=== PATIENT | female | born 1995 | race Caucasian/White ===

== ENCOUNTER 2017-10-21 16:16 | Emergency (ER) | payer SELFPAY ==
[~2017-10-21] VITALS: Ht 149.9 cm; Wt 54.4 kg
[~2017-10-21 16:16] MED LIST: CETI10TA17; LEVO500T2 PO; MONT10TA24; PHEN-640 PO; SERT50TA9
--- OUTSIDE RECORDS SUMMARY | 2017-10-21 16:22 | XMS REPORT ---
Author Author GISEL ZHANG [facility] eClinicalWorks Address Unknown Phone Unavailable Care Team Providers Care Systems Auditor Name Role Phone GISEL ZHANG Unavailable Allergies, Adverse Reactions, Alerts Substance Reaction Event Type N.K.D.A. Info Not Available Non Drug Allergy Problems Problem Type Condition Code Onset Dates Condition Status Assessment Dysthymia F34.1 Active Assessment Mild intermittent asthma without complication J45.20 Active Problem Mild intermittent asthma without complication J45.20 Active Problem Mood disorder F39 Active Problem Dysthymia F34.1 Active Problem H/O sciatica Z86.69 Active Problem Contraception management Z30.9 Active Problem Generalized anxiety disorder F41.1 Active Problem Low back pain M54.5 Active Medications Medication Code System Code Instructions Start Date End Date Status Dosage Flovent HFA [facility] [address]-72 44 MCG/ACT Inhalation Twice a day Jun 07, 2016 2 puffs Flonase [facility] [address]-71 50 MCG/ACT Nasally Once a day 1 spray in each nostril Proventil HFA [facility] [address]-08 108 (90 Base) MCG/ACT Inhalation every 4 hrs March 18, 2015 2 puffs as needed Singulair [facility] [address]-36 10 MG Orally Once a day 1 tablet in the evening Fluticasone Propionate HFA [facility] [address]-01 44 MCG/ACT Inhalation Twice a day March 18, 2015 March 12, 2016 2 puffs PredniSONE [facility] [address]-93 10 mg Orally twice day Jun 07, 2016 Jun 12, 2016 1 tablet Zofran [facility] [address]-01 4 MG Orally 3 times a day prn nausea April 06, 2015 1 tablet Zoloft [facility] [address]-98 50mg Orally Once a day 1 tablet Prilosec [facility] [address]-40 20 mg Orally Once a day February 01, 2016 1 Procedures Procedure Coding System Code Date Office Visit, Est Pt., Level 3 CPT-4 82048 Jun 07, 2016 MEASURE BLOOD OXYGEN LEVEL CPT-4 78119 Jun 07, 2016 Vital Signs Date/Time: Jun 07, 2016 Cardiac Monitoring Heart Rate 90 bpm Weight 104.8 lbs Height 61 in BMI 19.80 Index Oximetry on room air:100 % Blood Pressure Diastolic 80 mmHg Blood Pressure Systolic 108 mmHg BMIPercentile 25.79 % Wt Percentile 8.34 % Results No Known Results Summary Purpose eClinicalWorks Submission
--- OUTSIDE RECORDS SUMMARY | 2017-10-21 16:22 | XMS REPORT ---
Author Author JEFF SCANLON [facility] eClinicalWorks Address Unknown Phone Unavailable Care Team Providers Care Insulation Helper Name Role Phone JEFF SCANLON CP Unavailable Allergies, Adverse Reactions, Alerts Substance Reaction Event Type N.K.D.A. Info Not Available Non Drug Allergy Problems Problem Type Condition Code Onset Dates Condition Status Problem H/O sciatica Z86.69 Active Problem Contraception management Z30.9 Active Problem Low back pain M54.5 Active Assessment Seasonal allergies J30.2 Active Assessment Pharyngitis J02.9 Active Assessment Body aches R52 Active Medications Medication Code System Code Instructions Start Date End Date Status Dosage Flonase [facility] [address]-71 50 MCG/ACT Nasally Once a day 1 spray in each nostril Proventil [facility] [address]-93 108 (90 Base) MCG/ACT Inhalation every 4 hrs March 18, 2015 2 puffs as needed Fluticasone Propionate HFA [facility] [address]-20 44 MCG/ACT Inhalation Twice a day March 18, 2015 March 12, 2016 2 puffs Singulair [facility] [address]-66 10 MG Orally Once a day 1 tablet in the evening Zyrtec Allergy [facility] [address]-02 10 MG Orally Once a day Dec 04, 2015 Dec 18, 2015 as directed Ibuprofen [facility] [address]-57 400 MG Orally Three times a day 1 tablet Zofran [facility] [address]-16 4 MG Orally 3 times a day prn nausea April 06, 2015 1 tablet Procedures Procedure Coding System Code Date CULTURE, BACTERIA, OTHER CPT-4 32184 Dec 04, 2015 INFLUENZA ASSAY W/OPTIC CPT-4 50594 Dec 04, 2015 STREP A ASSAY W/OPTIC CPT-4 96846 Dec 04, 2015 Office Visit, Est Pt., Level 3 CPT-4 63692 Dec 04, 2015 Vital Signs Date/Time: Dec 04, 2015 Temperature 97.8 F Weight 101.4 lbs Height 61 in BMI 19.16 Index Blood Pressure Diastolic 82 mmHg Blood Pressure Systolic 110 mmHg Cardiac Monitoring Heart Rate 80 bpm BMIPercentile 18.58 % Wt Percentile 5.27 % Results Name Result Date Reference Range Unit Abnormality Flag INFLUENZA A & B (IN HOUSE) ----Exp date 2017-06-0420151204 ----INFLUENZA A negative 20151204 ----INFLUENZA B negative 20151204 ----Control + 20151204 ----Lot # [id number] STREP A (IN HOUSE) ----Exp date 20151204 ----Control + 20151204 ----Lot # [id number] [id number] ----STREP A negative 20151204 Summary Purpose eClinicalWorks Submission
--- OUTSIDE RECORDS SUMMARY | 2017-10-21 16:22 | XMS REPORT ---
Author Author YUE ELLIOTT Organization eClinicalWorks Address Unknown Phone Unavailable Care Team Providers Care Medical Aide Name Role Phone YUE ELLIOTT CP Unavailable Allergies, Adverse Reactions, Alerts Substance Reaction Event Type N.K.D.A. Info Not Available Non Drug Allergy Problems Problem Type Condition Code Onset Dates Condition Status Problem H/O sciatica Z86.69 Active Problem Contraception management Z30.9 Active Problem Low back pain M54.5 Active Assessment Sore throat J02.9 Active Medications Medication Code System Code Instructions Start Date End Date Status Dosage Proventil HFA [facility] [address]-08 108 (90 Base) MCG/ACT Inhalation every 4 hrs March 18, 2015 2 puffs as needed Fluticasone Propionate HFA [facility] [address]-79 44 MCG/ACT Inhalation Twice a day March 18, 2015 March 12, 2016 2 puffs Amoxicillin [facility] [address]-97 500 MG Orally 3 times a day 1 tablet Singulair [facility] [address]-33 10 MG Orally Once a day 1 tablet in the evening Flonase [facility] [address]-70 50 MCG/ACT Nasally Once a day 1 spray in each nostril Zofran [facility] [address]-48 4 MG Orally 3 times a day prn nausea April 06, 2015 1 tablet Procedures Procedure Coding System Code Date Office Visit, Est Pt., Level 3 CPT-4 55366 Oct 13, 2015 Vital Signs Date/Time: Oct 13, 2015 Temperature 98.2 F Weight 94.1 lbs Height 61 in BMI 17.78 Index Blood Pressure Diastolic 70 mmHg Blood Pressure Systolic 100 mmHg Cardiac Monitoring Heart Rate 78 bpm BMIPercentile 5.5 % Wt Percentile 1.02 % Results No Known Results Summary Purpose eClinicalWorks Submission
--- OUTSIDE RECORDS SUMMARY | 2017-10-21 16:23 | XMS REPORT ---
Author Author ARCELIA STEELE [facility] Address [address] [place] [address] Care Team Providers Care Frankfurter Inspector Name Role Phone ARCELIA STEELE Unavailable PROBLEMS Type Condition ICD9-CM Code EUW35-CS Code Onset Dates Condition Status SNOMED Code Problem Contraception management Z30.9 Active 24446908 Problem Low back pain M54.5 Active 199081106 Problem H/O sciatica Z86.69 Active 533364780 Problem Family history of diabetes mellitus Z83.3 Active 688603294 Problem Irregular periods N92.6 Active 52110165 Problem Mood disorder F39 Active 56009834 Problem Generalized anxiety disorder F41.1 Active 10549425 Problem Mild intermittent asthma without complication J45.20 Active 246329717 Problem Dysthymia F34.1 Active 40665841 ALLERGIES No Known Allergies SOCIAL HISTORY Never Assessed PLAN OF CARE Activity Details Follow Up prn Reason: VITAL SIGNS Height 61 in 2017-03-21 Weight 114.8 lbs 2017-03-21 Temperature 98.0 degrees Fahrenheit 2017-03-21 Heart Rate 112 bpm 2017-03-21 Respiratory Rate 18 2017-03-21 BMI 21.69 kg/m2 2017-03-21 Blood pressure systolic 100 mmHg 2017-03-21 Blood pressure diastolic 70 mmHg 2017-03-21 MEDICATIONS Medication Instructions Dosage Frequency Start Date End Date Duration Status Flovent HFA 44 MCG/ACT Inhalation Twice a day 2 puffs 12h May, Active Flonase 50 MCG/ACT Nasally Once a day 1 spray in each nostril 24h Active Zoloft 50mg Orally Once a day 1 tablet 24h 30 day(s) Active Naprosyn 500 mg Orally 2 times a day, pc 1 February, Apr, 30 days Active Ibuprofen 400 MG Orally Three times a day 1 tablet 8h Active Proventil HFA 108 (90 Base) MCG/ACT Inhalation every 4 hrs 2 puffs as needed 4h February, Active Zofran 4 MG Orally 3 times a day prn nausea 1 tablet Mar, 05 days Active Prilosec 20 mg Orally Once a day 1 24h Jan, 30 day(s) Active Singulair 10 MG Orally Once a day 1 tablet in the evening 24h Active RESULTS No Results PROCEDURES No Known procedures IMMUNIZATIONS No Known Immunizations MEDICAL (GENERAL) HISTORY Type Description Date Medical History asthma Medical History allergic rhinitis Medical History migraine headaches Medical History spastic bladder Medical History 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
--- OUTSIDE RECORDS SUMMARY | 2017-10-21 16:23 | XMS REPORT ---
Author Author DANITA TERRAZAS eClinicalWorks Address Unknown Phone Unavailable Care Team Providers Care Make Up Man Name Role Phone DANITA TERRAZAS Unavailable Allergies, Adverse Reactions, Alerts Substance Reaction Event Type N.K.D.A. Info Not Available Non Drug Allergy Problems Problem Type Condition Code Onset Dates Condition Status Assessment Nausea R11.0 Active Assessment History of recurrent UTIs Z87.440 Active Problem H/O sciatica Z86.69 Active Problem Contraception management Z30.9 Active Problem Low back pain M54.5 Active Assessment History of migraine headaches Z86.69 Active Assessment Lightheaded R42 Active Assessment Dark urine R82.99 Active Assessment Bad odor of urine R82.90 Active Medications Medication Code System Code Instructions Start Date End Date Status Dosage Singulair [facility] [address]-59 10 MG Orally Once a day 1 tablet in the evening Flonase [facility] [address]-17 50 MCG/ACT Nasally Once a day 1 spray in each nostril Zofran [facility] [address]-89 4 MG Orally 3 times a day prn nausea April 06, 2015 1 tablet Proventil HFA [facility] [address]-12 108 (90 Base) MCG/ACT Inhalation every 4 hrs March 18, 2015 2 puffs as needed Fluticasone Propionate HFA [facility] [address]-60 44 MCG/ACT Inhalation Twice a day March 18, 2015 March 12, 2016 2 puffs Procedures Procedure Coding System Code Date URINE CULTURE/COLONY COUNT CPT-4 53556 Sep 28, 2015 Office Visit, Est Pt., Level 3 CPT-4 85223 Sep 28, 2015 URINALYSIS, AUTO, W/O SCOPE CPT-4 35498 Sep 28, 2015 Vital Signs Date/Time: Sep 28, 2015 Temperature 97.0 F Weight 95.4 lbs Height 61 in BMI 18.02 Index Blood Pressure Diastolic 66 mmHg Blood Pressure Systolic 98 mmHg Cardiac Monitoring Heart Rate 78 bpm BMIPercentile 7.22 % Wt Percentile 1.46 % Results No Known Results Summary Purpose eClinicalWorks Submission
--- OUTSIDE RECORDS SUMMARY | 2017-10-21 16:23 | XMS REPORT ---
Author Author GISEL ZHANG Organization eClinicalWorks Address Unknown Phone Unavailable Care Team Providers Care Rn Research Name Role Phone GISEL ZHANG CP Unavailable Allergies, Adverse Reactions, Alerts Substance Reaction Event Type N.K.D.A. Info Not Available Non Drug Allergy Problems Problem Type Condition Code Onset Dates Condition Status Problem Other general medical examination for administrative purposes V70.3 Active Problem Palpitations 785.1 Active Problem Contraception management Z30.9 Active Assessment Contraception management Z30.9 Active Problem Lumbago 724.2 Active Problem Sciatica 724.3 Active Medications No Known Medications Procedures Procedure Coding System Code Date DEPO PROVERA (150 MG/ML) CPT-4 J1050 Sep 01, 2015 THER/PROPH/DIAG INJ, SC/IM CPT-4 76532 Sep 01, 2015 URINE TEST CPT-4 18017 Sep 01, 2015 Office Visit, Est Pt., Level 4 CPT-4 34675 Sep 01, 2015 Vital Signs Date/Time: Sep 01, 2015 Temperature 97.9 F Weight 96.9 lbs Height 61 in BMI 18.31 Index Blood Pressure Diastolic 64 mmHg Blood Pressure Systolic 98 mmHg Cardiac Monitoring Heart Rate 88 bpm BMIPercentile 9.85 % Wt Percentile 2.18 % Results Name Result Date Reference Range Unit Abnormality Flag TEST, URINE (IN HOUSE) Summary Purpose eClinicalWorks Submission
--- OUTSIDE RECORDS SUMMARY | 2017-10-21 16:23 | XMS REPORT ---
Author LONNIE Fernandez [facility] eClinicalWorks Address Unknown Phone Unavailable Care Team Providers Care Golf Ball Trimmer Name Role Phone LONNIE LONDON Unavailable Allergies, Adverse Reactions, Alerts Substance Reaction Event Type N.K.D.A. Info Not Available Non Drug Allergy Problems Problem Type Condition Code Onset Dates Condition Status Problem H/O sciatica Z86.69 Active Problem Contraception management Z30.9 Active Problem Low back pain M54.5 Active Assessment Abdominal pain R10.9 Active Medications Medication Code System Code Instructions Start Date End Date Status Dosage Hydrocodone-Acetaminophen [facility] [address]-01 5-325 MG Orally every 6 hrs Sep 30, 2015 Oct 05, 2015 1 tablet as needed Proventil HFA [facility] [address]-25 108 (90 Base) MCG/ACT Inhalation every 4 hrs March 18, 2015 2 puffs as needed Singulair [facility] [address]-14 10 MG Orally Once a day 1 tablet in the evening Flonase [facility] [address]-67 50 MCG/ACT Nasally Once a day 1 spray in each nostril Zofran [facility] [address]-59 4 MG Orally 3 times a day prn nausea April 06, 2015 1 tablet Fluticasone Propionate HFA [facility] [address]-01 44 MCG/ACT Inhalation Twice a day March 18, 2015 March 12, 2016 2 puffs Procedures Procedure Coding System Code Date X-RAY EXAM OF ABDOMEN CPT-4 68507 Sep 30, 2015 Office Visit, Est Pt., Level 3 CPT-4 91042 Sep 30, 2015 URINALYSIS, AUTO, W/O SCOPE CPT-4 53207 Sep 30, 2015 Vital Signs Date/Time: Sep 30, 2015 Temperature 98.3 F Weight 96.2 lbs Height 61 in BMI 18.17 Index Blood Pressure Diastolic 70 mmHg Blood Pressure Systolic 106 mmHg Cardiac Monitoring Heart Rate 80 bpm BMIPercentile 8.44 % Wt Percentile 1.81 % Results Name Result Date Reference Range Unit Abnormality Flag UA W/CULTURE IF INDICATED (IN HOUSE) ----ISAIAH negative 20150930 ----NIT negative 20150930 ----SG 1.025 20150930 ----KET negative 20150930 ----NICKI negative 20150930 ----GLU negative 20150930 ----Odor none 20150930 ----pH 6.5 20150930 ----BLO 1+ 20150930 ----URO 0.2 20150930 ----Protein negative 20150930 ----Lot # [id number] ----Exp date 20150930 ----Clarity clear 20150930 ----Color yellow 20150930 Xray : BRETT (IN HOUSE) Summary Purpose eClinicalWorks Submission
--- OUTSIDE RECORDS SUMMARY | 2017-10-21 16:23 | XMS REPORT ---
Author Author GISEL ZHANG [facility] eClinicalWorks Address Unknown Phone Unavailable Care Team Providers Care Breaker Tender Name Role Phone GISEL ZHANG Unavailable Allergies, Adverse Reactions, Alerts Substance Reaction Event Type N.K.D.A. Info Not Available Non Drug Allergy Problems Problem Type Condition Code Onset Dates Condition Status Problem Generalized anxiety disorder F41.1 Active Problem Low back pain M54.5 Active Problem Mood disorder F39 Active Assessment Dysthymia F34.1 Active Problem H/O sciatica Z86.69 Active Problem Contraception management Z30.9 Active Medications Medication Code System Code Instructions Start Date End Date Status Dosage Flonase [facility] [address]-22 50 MCG/ACT Nasally Once a day 1 spray in each nostril Proventil HFA [facility] [address]-17 108 (90 Base) MCG/ACT Inhalation every 4 hrs March 18, 2015 2 puffs as needed Prilosec [facility] [address]-27 20 mg Orally Once a day February 01, 2016 1 Singulair [facility] [address]-88 10 MG Orally Once a day 1 tablet in the evening Zofran [facility] [address]-08 4 MG Orally 3 times a day prn nausea April 06, 2015 1 tablet Zoloft [facility] [address]-40 25 MG Orally Once a day 1 tablet Procedures Procedure Coding System Code Date Office Visit, Est Pt., Level 3 CPT-4 05084 May 04, 2016 Vital Signs Date/Time: May 04, 2016 Cardiac Monitoring Heart Rate 72 bpm Weight 102.9 lbs Height 61 in BMIPercentile 21.22 % Wt Percentile 6.3 % Blood Pressure Diastolic 66 mmHg Blood Pressure Systolic 100 mmHg Results No Known Results Summary Purpose eClinicalWorks Submission
--- OUTSIDE RECORDS SUMMARY | 2017-10-21 16:23 | XMS REPORT ---
Author Author GISEL ZHANG Organization eClinicalWorks Address Unknown Phone Unavailable Care Team Providers Care Corrugated Sheet Material Sheeter Name Role Phone GISEL ZHANG CP Unavailable Allergies No Known Allergies Problems Problem Type Condition Code Onset Dates Condition Status Problem H/O sciatica Z86.69 Active Problem Contraception management Z30.9 Active Problem Low back pain M54.5 Active Assessment Encounter for Depo-Provera contraception Z30.42 Active Medications No Known Medications Procedures Procedure Coding System Code Date DEPO PROVERA (150 MG/ML) CPT-4 J1050 Nov 19, 2015 THER/PROPH/DIAG INJ, SC/IM CPT-4 81978 Nov 19, 2015 URINE TEST CPT-4 07640 Nov 19, 2015 Results Name Result Date Reference Range Unit Abnormality Flag TEST, URINE (IN HOUSE) ----RESULTS negative 20151119 ----Lot # [id number] [id number] ----Control + 20151119 ----Exp date 20151119 Summary Purpose eClinicalWorks Submission
--- OUTSIDE RECORDS SUMMARY | 2017-10-21 16:23 | XMS REPORT ---
Author ARCELIA Lyons [facility] eClinicalWorks Address Unknown Phone Unavailable Care Team Providers Care Dog Boarder Name Role Phone ARCELIA STEELE Unavailable Allergies, Adverse Reactions, Alerts Substance Reaction Event Type N.K.D.A. Info Not Available Non Drug Allergy Problems Problem Type Condition Code Onset Dates Condition Status Problem Generalized anxiety disorder F41.1 Active Problem Low back pain M54.5 Active Problem Mood disorder F39 Active Assessment Dyspepsia R10.13 Active Problem H/O sciatica Z86.69 Active Problem Contraception management Z30.9 Active Medications Medication Code System Code Instructions Start Date End Date Status Dosage Depo-Provera [facility] [address]-11 150 MG/ML Intramuscular 1 ml Ibuprofen [facility] [address]-04 400 MG Orally Three times a day 1 tablet Prilosec [facility] [address]-79 20 mg Orally Once a day February 01, 2016 1 Singulair [facility] [address]-81 10 MG Orally Once a day 1 tablet in the evening Fluticasone Propionate HFA [facility] [address]-08 44 MCG/ACT Inhalation Twice a day March 18, 2015 March 12, 2016 2 puffs Proventil HFA [facility] [address]-94 108 (90 Base) MCG/ACT Inhalation every 4 hrs March 18, 2015 2 puffs as needed Flonase [facility] [address]-10 50 MCG/ACT Nasally Once a day 1 spray in each nostril Zofran [facility] [address]-80 4 MG Orally 3 times a day prn nausea April 06, 2015 1 tablet Procedures Procedure Coding System Code Date Office Visit, Est Pt., Level 2 CPT-4 28621 February 01, 2016 Vital Signs Date/Time: February 01, 2016 Temperature 98.4 F Weight 105 lbs Height 61 in BMI 19.84 Index Blood Pressure Diastolic 82 mmHg Blood Pressure Systolic 106 mmHg Cardiac Monitoring Heart Rate 80 bpm BMIPercentile 27.07 % Wt Percentile 9.12 % Results No Known Results Summary Purpose eClinicalWorks Submission
--- OUTSIDE RECORDS SUMMARY | 2017-10-21 16:23 | XMS REPORT ---
Author Author GISEL ZHANG [facility] eClinicalWorks Address Unknown Phone Unavailable Care Team Providers Care Mucker Cofferdam Name Role Phone GISEL ZHANG Unavailable Allergies, Adverse Reactions, Alerts Substance Reaction Event Type N.K.D.A. Info Not Available Non Drug Allergy Problems Problem Type Condition Code Onset Dates Condition Status Assessment Dysthymia F34.1 Active Problem H/O sciatica Z86.69 Active Problem Contraception management Z30.9 Active Assessment Family history of diabetes mellitus Z83.3 Active Assessment Irregular periods N92.6 Active Problem Family history of diabetes mellitus Z83.3 Active Problem Dysthymia F34.1 Active Problem Irregular periods N92.6 Active Problem Generalized anxiety disorder F41.1 Active Problem Low back pain M54.5 Active Problem Mild intermittent asthma without complication J45.20 Active Problem Mood disorder F39 Active Medications Medication Code System Code Instructions Start Date End Date Status Dosage Proventil HFA [facility] [address]-35 108 (90 Base) MCG/ACT Inhalation every 4 hrs March 18, 2015 2 puffs as needed Flonase [facility] [address]-61 50 MCG/ACT Nasally Once a day 1 spray in each nostril Prilosec [facility] [address]-75 20 mg Orally Once a day February 01, 2016 1 Zofran [facility] [address]-55 4 MG Orally 3 times a day prn nausea April 06, 2015 1 tablet Flovent HFA [facility] [address]-85 44 MCG/ACT Inhalation Twice a day Jun 07, 2016 2 puffs Zoloft [facility] [address]-49 50mg Orally Once a day 1 tablet Singulair [facility] [address]-38 10 MG Orally Once a day 1 tablet in the evening Procedures Procedure Coding System Code Date GLYCATED HEMOGLOBIN TEST CPT-4 87827 Aug 09, 2016 Office Visit, Est Pt., Level 3 CPT-4 00282 Aug 09, 2016 URINE TEST CPT-4 24954 Aug 09, 2016 Vital Signs Date/Time: Aug 09, 2016 Cardiac Monitoring Heart Rate 90 bpm Weight 112 lbs Height 61 in Wt Percentile 19.08 % BMI 21.16 Index Blood Pressure Diastolic 72 mmHg Blood Pressure Systolic 104 mmHg BMIPercentile 43.88 % Results No Known Results Summary Purpose eClinicalWorks Submission
--- OUTSIDE RECORDS SUMMARY | 2017-10-21 16:23 | XMS REPORT ---
Author Author YUE ELLIOTT Organization [employer] Address Unknown Phone Unavailable Care Team Providers Care Surgical Appliances Salesperson Name Role Phone YUE ELLIOTT CP Unavailable Allergies, Adverse Reactions, Alerts Substance Reaction Event Type N.K.D.A. Info Not Available Non Drug Allergy Problems Problem Type Condition Code Onset Dates Condition Status Assessment Musculoskeletal chest pain R07.89 Active Problem Generalized anxiety disorder F41.1 Active Problem Low back pain M54.5 Active Problem Mood disorder F39 Active Assessment Chest pain on breathing R07.1 Active Assessment Heart palpitations R00.2 Active Problem H/O sciatica Z86.69 Active Problem Contraception management Z30.9 Active Medications Medication Code System Code Instructions Start Date End Date Status Dosage Proventil HFA [facility] [place] [address]-86 108 (90 Base) MCG/ACT Inhalation every 4 hrs March 18, 2015 2 puffs as needed Prilosec [facility] [place] [address]-34 20 mg Orally Once a day February 01, 2016 1 Flonase [facility] [place] [address]-24 50 MCG/ACT Nasally Once a day 1 spray in each nostril Zofran [facility] [place] [address]-60 4 MG Orally 3 times a day prn nausea April 06, 2015 1 tablet Zoloft [facility] [place] [address]-89 25 MG Orally Once a day 1 tablet Singulair [facility] [place] [address]-36 10 MG Orally Once a day 1 tablet in the evening Procedures Procedure Coding System Code Date CHEST X-RAY CPT-4 52891 May 21, 2016 ELECTROCARDIOGRAM, TRACING CPT-4 49397 May 21, 2016 MEASURE BLOOD OXYGEN LEVEL CPT-4 84500 May 21, 2016 Office Visit, Est Pt., Level 3 CPT-4 64916 May 21, 2016 Vital Signs Date/Time: May 21, 2016 Cardiac Monitoring Heart Rate 108 bpm Weight 103 lbs Height 61 in BMIPercentile 21.47 % Wt Percentile 6.39 % Blood Pressure Diastolic 88 mmHg Blood Pressure Systolic 124 mmHg Results No Known Results Summary Purpose [employer] Submission
--- OUTSIDE RECORDS SUMMARY | 2017-10-21 16:23 | XMS REPORT ---
Author MARIELA Borrero Organization [employer] Address Unknown Phone Unavailable Care Team Providers Care Financial Analyst Name Role Phone MARIELA KAPOOR Unavailable Allergies No Known Allergies Problems Problem Type Condition Code Onset Dates Condition Status Problem H/O sciatica Z86.69 Active Problem Contraception management Z30.9 Active Problem Low back pain M54.5 Active Medications No Known Medications Results No Known Results Summary Purpose [employer] Submission
--- OUTSIDE RECORDS SUMMARY | 2017-10-21 16:23 | XMS REPORT ---
Author Author MARY FAUSTIN Organization [facility] Address [address] [place] [address] Care Team Providers Care Cloth Measurer Name Role Phone MARY FAUSTIN Unavailable PROBLEMS Type Condition ICD9-CM Code [id number] Code Onset Dates Condition Status SNOMED Code Problem Contraception management Z30.9 Active 24768433 Problem Low back pain M54.5 Active 185747272 Problem H/O sciatica Z86.69 Active 563839409 Problem Family history of diabetes mellitus Z83.3 Active 523068637 Problem Irregular periods N92.6 Active 71832903 Problem Mood disorder F39 Active 66400490 Problem Generalized anxiety disorder F41.1 Active 30685510 Problem Mild intermittent asthma without complication J45.20 Active 499290495 Problem Dysthymia F34.1 Active 41105394 ALLERGIES No Known Allergies SOCIAL HISTORY Never Assessed PLAN OF CARE Activity Details Follow Up prn Reason: VITAL SIGNS Height 61 in 2016-12-30 Weight 111.4 lbs 2016-12-30 Temperature 99.0 degrees Fahrenheit 2016-12-30 Heart Rate 100 bpm 2016-12-30 Respiratory Rate 22 2016-12-30 BMI 21.05 kg/m2 2016-12-30 Blood pressure systolic 110 mmHg 2016-12-30 Blood pressure diastolic 78 mmHg 2016-12-30 MEDICATIONS Medication Instructions Dosage Frequency Start Date End Date Duration Status Amoxicillin 875 MG Orally every 12 hrs 1 tablet 12h Dec, Dec, 10 day(s) Active Flonase Allergy Relief 50 MCG/ACT Nasally twice a day 1 spray in each nostril 12h Sep, 30 day(s) Active Ibuprofen 400 MG Orally Three times a day 1 tablet 8h Active Zoloft 50mg Orally Once a day 1 tablet 24h 30 day(s) Active Zofran 4 MG Orally 3 times a day prn nausea 1 tablet Mar, 05 days Active Singulair 10 MG Orally Once a day 1 tablet in the evening 24h Active Proventil HFA 108 (90 Base) MCG/ACT Inhalation every 4 hrs 2 puffs as needed 4h 20 Feb, 2015 Active Prilosec 20 mg Orally Once a day 1 24h Jan, 30 day(s) Active Flovent HFA 44 MCG/ACT Inhalation Twice a day 2 puffs 12h May, Active Flonase 50 MCG/ACT Nasally Once a day 1 spray in each nostril 24h Active RESULTS No Results PROCEDURES No Known procedures IMMUNIZATIONS No Known Immunizations MEDICAL (GENERAL) HISTORY Type Description Date Medical History asthma Medical History allergic rhinitis Medical History migraine headaches Medical History spastic bladder Medical History 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
--- OUTSIDE RECORDS SUMMARY | 2017-10-21 16:23 | XMS REPORT ---
Author Author GISEL ZHANG [facility] Address [address] [place] [address] Care Team Providers Care Nursing Service Administrator Name Role Phone GISEL ZHANG Unavailable PROBLEMS Type Condition ICD9-CM Code [id number] Code Onset Dates Condition Status SNOMED Code Problem Contraception management Z30.9 Active 86801569 Problem Low back pain M54.5 Active 841015072 Problem H/O sciatica Z86.69 Active 138056638 Problem Family history of diabetes mellitus Z83.3 Active 873222466 Problem Irregular periods N92.6 Active 68624066 Problem Mood disorder F39 Active 44011249 Problem Generalized anxiety disorder F41.1 Active 81621528 Problem Mild intermittent asthma without complication J45.20 Active 769112892 Problem Dysthymia F34.1 Active 82075051 ALLERGIES No Information SOCIAL HISTORY Never Assessed PLAN OF CARE VITAL SIGNS MEDICATIONS Medication Instructions Dosage Frequency Start Date End Date Duration Status Proventil HFA 108 (90 Base) MCG/ACT Inhalation every 4 hrs 2 puffs as needed 4h 20 Feb, 2015 Active RESULTS No Results PROCEDURES No Known procedures IMMUNIZATIONS No Known Immunizations MEDICAL (GENERAL) HISTORY Type Description Date Medical History asthma Medical History allergic rhinitis Medical History migraine headaches Medical History spastic bladder Medical History 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
--- OUTSIDE RECORDS SUMMARY | 2017-10-21 16:24 | XMS REPORT | Continuity of Care Document ---
Author Author [facility] Address Unknown Phone Unavailable Allergies Active Description Code Type Severity Reaction Onset Reported/Identified Relationship to Patient Clinical Status Yes No Known Drug Allergies [id number] Drug Allergy Mild N/A 05/01/2009 Medications There is no data. 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, Tetanus-diphtheria [td] 06/21/2008 ELOY HITCHCOCK APRN V20.2 Preventive Medicine New Patient Evaluation Childhood 5-11 06/21/2008 MICKEY GISEL ALVAREZ V05.3 Hepatitis Viral/all 06/21/2008 MICKEY KIM GISEL L V05.4 Varicella, Chickenpox 06/21/2008 MICKEY GISEL ALVAREZ L V05.8 Gardasil, Shingles, Other Specified Disease 06/21/2008 MICKEY GISEL ALVAREZ L V06.5 Dt, Tetanus-diphtheria [td] 06/21/2008 MICKEY GISEL ALVAREZ L V20.2 Preventive Medicine New Patient Evaluation Childhood 5-11 06/21/2008 ELOY HITCHCOCK APRN V05.3 Hepatitis Viral/all 06/21/2008 ELOY HITCHCOCK APRN V05.4 Varicella, Chickenpox 06/21/2008 ELOY HITCHCOCK APRN V05.8 Gardasil, Shingles, Other Specified Disease 06/21/2008 ELOY HITCHCOCK APRN V06.5 Dt, Tetanus-diphtheria [td] 06/21/2008 ELOY HITCHCOCK APRN V20.2 Preventive Medicine New Patient Evaluation Childhood 5-11 06/21/[address] CUTTER, SUMIT R V05.3 Hepatitis Viral/all 06/21/[address] CUTTER, SUMIT R V05.4 Varicella, Chickenpox 06/21/[address] CUTTER, SUMIT R V05.8 Gardasil, Shingles, Other Specified Disease 06/21/[address] CUTTER, SUIMT R V06.5 Dt, Tetanus-diphtheria [td] 06/21/[address] CUTTER, SUMIT R V20.2 Preventive Medicine New Patient Evaluation Childhood 5-11 06/21/[address] [facility] [address] CUTTER, GISEL L V05.3 Hepatitis Viral/all 06/21/[address] [facility] [address] CUTTER, GISEL L V05.4 Varicella, Chickenpox 06/21/[address] [facility] [address] CUTTER, GISEL L V05.8 Gardasil, Shingles, Other Specified Disease 06/21/[address] [facility] [address] CUTTER, GISEL L V06.5 Dt, Tetanus-diphtheria [td] 06/21/[address] [facility] [address] CUTTER, GISEL L V20.2 Preventive Medicine New Patient Evaluation Childhood 5-11 06/21/[address] CUTTER, GISEL L V05.3 Hepatitis Viral/all 06/21/[address] [facility] [address] CUTTER, GISEL L V05.4 Varicella, Chickenpox 06/21/[address] [facility] [address] CUTTER, GISEL L V05.8 Gardasil, Shingles, Other Specified Disease 06/21/[address] [facility] [address] CUTTER, GISEL L V06.5 Dt, Tetanus-diphtheria [td] 06/21/[address] [facility] [address] CUTTER, GISEL L V20.2 Preventive Medicine New Patient Evaluation Childhood 5-11 06/21/[address] CUTTER, BOB R V05.3 Hepatitis Viral/all 06/21/2008 ALEXEY SANTIAGON, BOB R V05.4 Varicella, Chickenpox 06/21/2008 ALEXEY SANTIAGON BOB R V05.8 Gardasil, Shingles, Other Specified Disease 06/21/2008 ALEXEY SANTIAGON BOB R V06.5 Dt, Tetanus-diphtheria [td] 06/21/[address] CUTTER, BOB R V20.2 Preventive Medicine New Patient Evaluation Childhood 5-11 06/21/[address] CUTTER, BOB R V05.3 Hepatitis Viral/all 06/21/[address] CUTTER BOB R V05.4 Varicella, Chickenpox 06/21/[address] CUTTER, BOB R V05.8 Gardasil, Shingles, Other Specified Disease 06/21/2008 ALEXEY SANTIAGON BOB R V06.5 Dt, Tetanus-diphtheria [td] 06/21/2008 ALEXEY SANTIAGONOSCARBOB R V20.2 Preventive Medicine New Patient Evaluation Childhood 5-11 06/21/[address] CUTTER, GISEL L V05.3 Hepatitis Viral/all 06/21/[address] CUTTER, GISEL L V05.4 Varicella, Chickenpox 06/21/[address] CUTTER, GISEL L V05.8 Gardasil, Shingles, Other Specified Disease 06/21/[address] CUTTER, GISEL L V06.5 Dt, Tetanus-diphtheria [td] 06/21/[address] CUTTER, GISEL L V20.2 Preventive Medicine New Patient Evaluation Childhood 5-11 07/24/2008 ELOY HITCHCOCK APRN 729.5 Pain In Limb 07/24/[address] CUTTER, GISEL L 729.5 Pain In Limb 07/24/2008 ELOY HITCHCOCK APRN 729.5 Pain In Limb 07/24/2008 CHRISSY ALVAREZ SUMIT R 729.5 Pain In Limb 07/24/[address] CUTTER, GISEL L 729.5 Pain In Limb 07/24/[address] CUTTER, GISEL L 729.5 Pain In Limb 07/24/2008 ALEXEY ALVAREZ BOB R 729.5 Pain In Limb 07/24/2008 OSCAR BLACKBURN APRNRICIA R 729.5 Pain In Limb 07/24/[address] CUTTER, GISEL L 729.5 Pain In Limb 10/01/2008 ELOY HITCHCOCK APRN 599.0 Urinary Tract Infection 10/01/2008 GISEL ZHANG APRN L 599.0 Urinary Tract Infection 10/01/2008 ELOY HITCHCOCK APRN 599.0 Urinary Tract Infection 10/01/[address] CUTTER, SUMIT R 599.0 Urinary Tract Infection 10/01/[address] CUTTER, GISEL L 599.0 Urinary Tract Infection 10/01/[address] CUTTER, GISEL L 599.0 Urinary Tract Infection 10/01/[address] CUTTER, BOB R 599.0 Urinary Tract Infection 10/01/2008 ALEXEY SANTIAGON, BOB R 599.0 Urinary Tract Infection 10/01/[address] CUTTER, GISEL L 599.0 Urinary Tract Infection 12/02/2008 ELOY HITCHCOCK APRN 787.02 Nausea 12/02/2008 ELOY HITCHCOCK APRN 789.00 Abdominal Pain 12/02/[address] CUTTER, GISEL L 787.02 Nausea 12/02/[address] CUTTER, GISEL L 789.00 Abdominal Pain 12/02/2008 ELOY HITCHCOCK APRN 787.02 Nausea 12/02/2008 ELOY HITCHCOCK APRN 789.00 Abdominal Pain 12/02/2008 CHRISSY ALVAREZ, SUMIT R 787.02 Nausea 12/02/[address] CUTTER, SUMIT R 789.00 Abdominal Pain 12/02/[address] CUTTER, GISEL L 787.02 Nausea 12/02/[address] CUTTER, GISEL L 789.00 Abdominal Pain 12/02/[address] CUTTER, GISEL L 787.02 Nausea 12/02/[address] CUTTER, GISEL L 789.00 Abdominal Pain 12/02/2008 OSCAR BLACKBURN APRNRICIA R 787.02 Nausea 12/02/2008 ALEXEY ALVAREZ BOB R 789.00 Abdominal Pain 12/02/2008 ALEXEY ALVAREZ BOB R 787.02 Nausea 12/02/2008 ALEXEY ALVAREZ BOB R 789.00 Abdominal Pain 12/02/[address] CUTTER, GISEL L 787.02 Nausea 12/02/[address] CUTTER, GISEL L 789.00 Abdominal Pain 01/20/2009 ELOY HITCHCOCK APRN 034.0 Pharyngitis Streptococcus, Group A: Beta Hemolytic 01/20/[address] CUTTER, GISEL L 034.0 Pharyngitis Streptococcus, Group A: Beta Hemolytic 01/20/2009 ELOY HITCHCOCK APRN T 034.0 Pharyngitis Streptococcus, Group A: Beta Hemolytic 01/20/[address] CUTTER, SUMIT R 034.0 Pharyngitis Streptococcus, Group A: Beta Hemolytic 01/20/[address] CUTTER, GISEL L 034.0 Pharyngitis Streptococcus, Group A: Beta Hemolytic 01/20/[address] CUTTER, GISEL L 034.0 Pharyngitis Streptococcus, Group A: Beta Hemolytic 01/20/[address] CUTTER, BOB R 034.0 Pharyngitis Streptococcus, Group A: Beta Hemolytic 01/20/[address] CUTTER, BOB R 034.0 Pharyngitis Streptococcus, Group A: Beta Hemolytic 01/20/[address] CUTTER, GISEL L 034.0 Pharyngitis Streptococcus, Group A: Beta Hemolytic 06/05/2009 ELOY HITCHCOCK APRN 477.9 ALLERGIC RHINITIS 06/05/2009 ELOY HITCHCOCK APRN V03.89 Meningococcal, Other Specified Single Bacterial Disease 06/05/[address] [facility] [address] CUTTER, GISEL L 477.9 ALLERGIC RHINITIS 06/05/[address] [facility] [address] CUTTER, GISEL L V03.89 Meningococcal, Other Specified Single Bacterial Disease 06/05/2009 ELOY HITCHCOCK APRN 477.9 ALLERGIC RHINITIS 06/05/2009 ELOY HITCHCOCK APRN V03.89 Meningococcal, Other Specified Single Bacterial Disease 06/05/[address] CUTTER, SUMIT R 477.9 ALLERGIC RHINITIS 06/05/[address] CUTTER, SUMIT R V03.89 Meningococcal, Other Specified Single Bacterial Disease 06/05/[address] CUTTER, GISEL L 477.9 ALLERGIC RHINITIS 06/05/[address] CUTTER, GISEL L V03.89 Meningococcal, Other Specified Single Bacterial Disease 06/05/[address] CUTTER, GISEL L 477.9 ALLERGIC RHINITIS 06/05/[address] [facility] [address] CUTTER, GISEL L V03.89 Meningococcal, Other Specified Single Bacterial Disease 06/05/[address] CUTTER, BOB R 477.9 ALLERGIC RHINITIS 06/05/[address] CUTTER, BOB R V03.89 Meningococcal, Other Specified Single Bacterial Disease 06/05/[address] CUTTER, BOB R 477.9 ALLERGIC RHINITIS 06/05/[address] CUTTER, BOB R V03.89 Meningococcal, Other Specified Single Bacterial Disease 06/05/[address] CUTTER, GISEL L 477.9 ALLERGIC RHINITIS 06/05/[address] CUTTER, GISEL L V03.89 Meningococcal, Other Specified Single Bacterial Disease 08/25/2009 ELOY HITCHCOCK APRN 307.6 ENURESIS PRIMARY 08/25/2009 ELOY HITCHCOCK APRN 493.00 Asthma Extrinsic 08/25/2009 ELOY HITCHCOCK APRN 681.10 Cellulitis Of The Right First Toe 08/25/[address] [facility] [address] CUTTER, GISEL L 307.6 ENURESIS PRIMARY 08/25/[address] [facility] [address] CUTTER, GISEL L 493.00 Asthma Extrinsic 08/25/[address] [facility] [address] CUTTER, GISEL L 681.10 Cellulitis Of The Right First Toe 08/25/2009 ELOY HITCHCOCK APRN 307.6 ENURESIS PRIMARY 08/25/2009 ELOY HITCHCOCK APRN 493.00 Asthma Extrinsic 08/25/2009 ELOY HITCHCOCK APRN 681.10 Cellulitis Of The Right First Toe 08/25/2009 CHRISSY ALVAREZ SUMIT R 307.6 ENURESIS PRIMARY 08/25/2009 CHRISSY ALVAREZ, SUMIT R 493.00 Asthma Extrinsic 08/25/2009 CHRISSY ALVAREZ, SUMIT R 681.10 Cellulitis Of The Right First Toe 08/25/[address] [facility] [address] CUTTER, GISEL L 307.6 ENURESIS PRIMARY 08/25/[address] CUTTER, GISEL L 493.00 Asthma Extrinsic 08/25/[address] CUTTER, GISEL L 681.10 Cellulitis Of The Right First Toe 08/25/[address] CUTTER, GISEL L 307.6 ENURESIS PRIMARY 08/25/[address] CUTTER, GISEL L 493.00 Asthma Extrinsic 08/25/[address] CUTTER, GISEL L 681.10 Cellulitis Of The Right First Toe 08/25/[address] CUTTER, BOB R 307.6 ENURESIS PRIMARY 08/25/2009 ALEXEY SANTIAGON, BOB R 493.00 Asthma Extrinsic 08/25/2009 ALEXEY SANTIAGON, BOB R 681.10 Cellulitis Of The Right First Toe 08/25/2009 ALEXEY SANTIAGON, BOB R 307.6 ENURESIS PRIMARY 08/25/2009 ALEXEY SANTIAGON, BOB R 493.00 Asthma Extrinsic 08/25/2009 ALEXEY ALVAREZ, BOB R 681.10 Cellulitis Of The Right First Toe 08/25/[address] CUTTER, GISEL L 307.6 ENURESIS PRIMARY 08/25/[address] CUTTER, GISEL L 493.00 Asthma Extrinsic 08/25/[address] CUTTER, GISEL L 681.10 Cellulitis Of The Right First Toe 09/29/2009 ELOY HITCHCOCK APRN 078.19 Warts Hand Right 09/29/2009 LEATHA ALVAREZ, GISEL L 078.19 Warts Hand Right 09/29/2009 ELOY HITCHCOCK APRN 078.19 Warts Hand Right 09/29/2009 CHRISSY ALVAREZ, SUMIT R 078.19 Warts Hand Right 09/29/[address] CUTTER, GISEL L 078.19 Warts Hand Right 09/29/[address] CUTTER, GISEL L 078.19 Warts Hand Right 09/29/2009 OSCAR BLACKBURN APRNRICIA R 078.19 Warts Hand Right 09/29/2009 ALEXEY ALVAREZ BOB R 078.19 Warts Hand Right 09/29/2009 LEATHA ALVAREZ, GISEL L 078.19 Warts Hand Right 01/06/2010 ELOY HITCHCOCK APRN 719.46 Joint Pain, Localized In The Knee 01/06/2010 IBETH ZHANG APRNA L 719.46 Joint Pain, Localized In The Knee 01/06/2010 ELOY HITCHCOCK APRN 719.46 Joint Pain, Localized In The Knee 01/06/2010 CHRISSY ALVAREZ, SUMIT R 719.46 Joint Pain, Localized In The Knee 01/06/2010 SNEHAL ZHANG APRNWNYA L 719.46 Joint Pain, Localized In The Knee 01/06/[address] CUTTER, GISEL L 719.46 Joint Pain, Localized In The Knee 01/06/2010 ALEXEY ALVAREZ BOB R 719.46 Joint Pain, Localized In The Knee 01/06/2010 ALEXEY ALVAREZ BOB R 719.46 Joint Pain, Localized In The Knee 01/06/[address] CUTTER, GISEL L 719.46 Joint Pain, Localized In The Knee 01/25/2010 ELOY HITCHCOCK APRN 462 Pharyngitis Acute 01/25/[address] CUTTER, GISEL L 462 Pharyngitis Acute 01/25/2010 ELOY HITCHCOCK APRN 462 Pharyngitis Acute 01/25/2010 CHRISSY ALVAREZ, SUMIT R 462 Pharyngitis Acute 01/25/[address] CUTTER, GISEL L 462 Pharyngitis Acute 01/25/[address] CUTTER, GISEL L 462 Pharyngitis Acute 01/25/2010 OSCAR BLACKBURN APRNRICIA R 462 Pharyngitis Acute 01/25/2010 OSCAR BLACKBURN APRNRICIA R 462 Pharyngitis Acute 01/25/[address] CUTTER, GISEL L 462 Pharyngitis Acute 02/11/2010 Ot 719.46 02/11/2010 Ot V57.1 09/01/2010 ELOY HITCHCOCK APRN 788.30 Urinary Incontinence Unspecified 09/01/[address] CUTTER, GISEL L 788.30 Urinary Incontinence Unspecified 09/01/2010 ELOY HITCHCOCK APRN 788.30 Urinary Incontinence Unspecified 09/01/2010 CHRISSY ALVAREZ, SUMIT R 788.30 Urinary Incontinence Unspecified 09/01/[address] CUTTER, GISEL L 788.30 Urinary Incontinence Unspecified 09/01/[address] CUTTER, GISEL L 788.30 Urinary Incontinence Unspecified 09/01/2010 OSCAR BLACKBURN APRNRICIA R 788.30 Urinary Incontinence Unspecified 09/01/2010 OSCAR BLACKBURN APRNRICIA R 788.30 Urinary Incontinence Unspecified 09/01/2010 MADL KIM, GISEL L 788.30 Urinary Incontinence Unspecified 09/14/[address] CUTTER, ELOY T 493.90 ASTHMA UNSPECIFIED 09/14/2010 ELOY HITCHCOCK APRN T V04.81 Flu Shot 09/14/[address] CUTTER, GISEL L 493.90 ASTHMA UNSPECIFIED 09/14/[address] CUTTER, GISEL L V04.81 Flu Shot 09/14/2010 ELOY HITCHCOCK APRN T 493.90 ASTHMA UNSPECIFIED 09/14/2010 ELOY HITCHCOCK APRN T V04.81 Flu Shot 09/14/[address] CUTTER, SUMIT R 493.90 ASTHMA UNSPECIFIED 09/14/[address] CUTTER, SUMIT R V04.81 Flu Shot 09/14/[address] CUTTER, GISEL L 493.90 ASTHMA UNSPECIFIED 09/14/[address] CUTTER, GISEL L V04.81 Flu Shot 09/14/[address] CUTTER, GISEL L 493.90 ASTHMA UNSPECIFIED 09/14/[address] CUTTER, GISEL L V04.81 Flu Shot 09/14/[address] CUTTER, BOB R 493.90 ASTHMA UNSPECIFIED 09/14/[address] CUTTER, BOB R V04.81 Flu Shot 09/14/[address] CUTTER, BOB R 493.90 ASTHMA UNSPECIFIED 09/14/[address] CUTTER, BOB R V04.81 Flu Shot 09/14/[address] CUTTER, GISEL L 493.90 ASTHMA UNSPECIFIED 09/14/[address] CUTTER, GISEL L V04.81 Flu Shot 10/19/2010 ELOY HITCHCOCK APRN T 465.9 Upper Respiratory Infection 10/19/[address] CUTTER, GISEL L 465.9 Upper Respiratory Infection 10/19/2010 ELOY HITCHCOCK APRN 465.9 Upper Respiratory Infection 10/19/[address] CUTTER, SUMIT R 465.9 Upper Respiratory Infection 10/19/[address] CUTTER, GISEL L 465.9 Upper Respiratory Infection 10/19/[address] CUTTER, GISEL L 465.9 Upper Respiratory Infection 10/19/[address] CUTTER, BOB R 465.9 Upper Respiratory Infection 10/19/[address] CUTTER, BOB R 465.9 Upper Respiratory Infection 10/19/[address] CUTTER, GISEL L 465.9 Upper Respiratory Infection 11/11/2010 ELOY HITCHCOCK APRN 535.50 Gastritis Unspec 11/11/2010 LEATHA ALVAREZ, GISEL L 535.50 Gastritis Unspec 11/11/2010 ELOY HITCHCOCK APRN 535.50 Gastritis Unspec 11/11/2010 CHRISSY ALVAREZ, SUMIT R 535.50 Gastritis Unspec 11/11/[address] CUTTER, GISEL L 535.50 Gastritis Unspec 11/11/[address] CUTTER, GISEL L 535.50 Gastritis Unspec 11/11/2010 ALEXEY ALVAREZ, BOB R 535.50 Gastritis Unspec 11/11/2010 ALEXEY SANTIAGON, BOB R 535.50 Gastritis Unspec 11/11/[address] CUTTER, GISEL L 535.50 Gastritis Unspec 03/09/2011 ELOY HITCHCOCK APRN 309.4 AD ADJ D/O W DIST OF EMOT 03/09/2011 GISEL ZHANG APRN L 309.4 AD ADJ D/O W DIST OF EMOT 03/09/2011 ELOY HITCHCOCK APRN 309.4 AD ADJ D/O W DIST OF EMOT 03/09/2011 CHRISSY ALVAREZ SUMIT R 309.4 AD ADJ D/O W DIST OF EMOT 03/09/2011 LEATHA ALVAREZ, GIESL L 309.4 AD ADJ D/O W DIST OF EMOT 03/09/2011 LEATHA ALVAREZ, GISEL L 309.4 AD ADJ D/O W DIST OF EMOT 03/09/2011 SERG BLACKBURN APRNIA R 309.4 AD ADJ D/O W DIST OF EMOT 03/09/2011 SERG BLACKBURN APRNIA R 309.4 AD ADJ D/O W DIST OF EMOT 03/09/2011 LEATHA ALVAREZ, GISEL L 309.4 AD ADJ D/O W DIST OF EMOT 03/11/2011 ELOY HITCHCOCK APRN 458.0 Orthostatic Hypotension 03/11/2011 ELOY HITCHCOCK APRN 780.2 Syncope And Collapse 03/11/2011 GISEL ZHANG APRN 458.0 Orthostatic Hypotension 03/11/2011 GISEL ZHANG APRN 780.2 Syncope And Collapse 03/11/[address] CUTTER, ELOY T 458.0 Orthostatic Hypotension 03/11/2011 ELOY HITCHCOCK APRN T 780.2 Syncope And Collapse 03/11/[address] CUTTER, SUMTI R 458.0 Orthostatic Hypotension 03/11/[address] CUTTER, SUMIT R 780.2 Syncope And Collapse 03/11/[address] CUTTER, GISEL L 458.0 Orthostatic Hypotension 03/11/[address] CUTTER, GISEL L 780.2 Syncope And Collapse 03/11/[address] CUTTER, GISEL L 458.0 Orthostatic Hypotension 03/11/[address] CUTTER, GISEL L 780.2 Syncope And Collapse 03/11/[address] CUTTER, BOB R 458.0 Orthostatic Hypotension 03/11/[address] CUTTER, BOB R 780.2 Syncope And Collapse 03/11/[address] CUTTER, BOB R 458.0 Orthostatic Hypotension 03/11/2011 ALEXEY ALVAREZ BOB R 780.2 Syncope And Collapse 03/11/[address] CUTTER, GISEL L 458.0 Orthostatic Hypotension 03/11/[address] CUTTER, GISEL L 780.2 Syncope And Collapse 03/18/2011 ELOY HITCHCOCK APRN 599.0 Urinary Tract Infection Site Not Specified 03/18/[address] CUTTER, GISEL L 599.0 Urinary Tract Infection Site Not Specified 03/18/2011 ELOY HITCHCOCK APRN 599.0 Urinary Tract Infection Site Not Specified 03/18/2011 CHRISSY ALVAREZ, SUMIT R 599.0 Urinary Tract Infection Site Not Specified 03/18/[address] CUTTER, GISEL L 599.0 Urinary Tract Infection Site Not Specified 03/18/[address] CUTTER, GISEL L 599.0 Urinary Tract Infection Site Not Specified 03/18/2011 OSCAR BLACKBURN APRNRICIA R 599.0 Urinary Tract Infection Site Not Specified 03/18/2011 ALEXEY SANTIAGON BOB R 599.0 Urinary Tract Infection Site Not Specified 03/18/[address] CUTTER, GISEL L 599.0 Urinary Tract Infection Site Not Specified 04/29/2011 ELOY HITCHCOCK APRN V20.2 WELL CHILD 04/29/[address] CUTTER, GISEL L V20.2 WELL CHILD 04/29/2011 ELOY HITCHCOCK APRN T V20.2 WELL CHILD 04/29/[address] CUTTER, SUMIT R V20.2 WELL CHILD 04/29/[address] CUTTER, GISEL L V20.2 WELL CHILD 04/29/[address] CUTTER, GISEL L V20.2 WELL CHILD 04/29/2011 ALEXEY ALVAREZ, BOB R V20.2 WELL CHILD 04/29/2011 ALEXEY ALVAREZ, BOB R V20.2 WELL CHILD 04/29/[address] CUTTER, GISEL L V20.2 WELL CHILD 02/22/2012 ELOY HICTHCOCK APRN 599.0 URINARY TRACT INFECTION 02/22/[address] CUTTER, GISEL L 599.0 URINARY TRACT INFECTION 02/22/2012 ELOY HITCHCOCK APRN 599.0 URINARY TRACT INFECTION 02/22/2012 MELISA LOWE APRNINA R 599.0 URINARY TRACT INFECTION 02/22/[address] CUTTER, GISEL L 599.0 URINARY TRACT INFECTION 02/22/[address] CUTTER, GISEL L 599.0 URINARY TRACT INFECTION 02/22/2012 OSCAR BLACKBURN APRNRICIA R 599.0 URINARY TRACT INFECTION 02/22/2012 OSCAR BLACKBURN APRNRICIA R 599.0 URINARY TRACT INFECTION 02/22/[address] CUTTER, GISEL L 599.0 URINARY TRACT INFECTION 05/28/2012 ELOY HITCHOCCK APRN 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 05/28/[address] CUTTER, GISEL L 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 05/28/2012 ELOY HITCHCOCK APRN 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 05/28/2012 CHRISSY ALVAREZ SUMIT R 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 05/28/[address] CUTTER, GISEL L 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 05/28/2012 MICKEYL KIM, GISEL L 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 05/28/2012 SERG BLACKBURN APRNIA R 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 05/28/2012 BOB BLACKBURN APRN R 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 05/28/[address] CUTTER, GISEL L 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 06/04/2013 ELOY HITCHCOCK APRN T 564.00 CONSTIPATION 06/04/2013 ELOY HITCHCOCK APRN 785.1 palpitations 06/04/2013 ELOY HITCHCOCK APRN V70.3 OTHER GENERAL MEDICAL EXAMINATION FOR ADMINISTRATIVE PURPOSES 06/04/[address] CUTTER, GISEL L 564.00 CONSTIPATION 06/04/[address] CUTTER, GISEL L 785.1 palpitations 06/04/[address] CUTTER, GISEL L V70.3 OTHER GENERAL MEDICAL EXAMINATION FOR ADMINISTRATIVE PURPOSES 06/04/2013 ELOY HITCHCOCK APRN T 564.00 CONSTIPATION 06/04/2013 ELOY HITCHCOCK APRN 785.1 palpitations 06/04/2013 ELOY HITCHCOCK APRN V70.3 OTHER GENERAL MEDICAL EXAMINATION FOR ADMINISTRATIVE PURPOSES 06/04/2013 CHRISSY ALVAREZ SUMIT R 564.00 CONSTIPATION 06/04/2013 CHRISSY ALVAREZ SUMIT R 785.1 palpitations 06/04/2013 CHRISSY ALVAREZ SUMIT R V70.3 OTHER GENERAL MEDICAL EXAMINATION FOR ADMINISTRATIVE PURPOSES 06/04/[address] CUTTER, GISEL L 564.00 CONSTIPATION 06/04/[address] CUTTER, GISEL L 785.1 palpitations 06/04/[address] CUTTER, GISEL L V70.3 OTHER GENERAL MEDICAL EXAMINATION FOR ADMINISTRATIVE PURPOSES 06/04/[address] CUTTER, GISEL L 564.00 CONSTIPATION 06/04/[address] CUTTER, GISEL L 785.1 palpitations 06/04/[address] CUTTER, GISEL L V70.3 OTHER GENERAL MEDICAL EXAMINATION FOR ADMINISTRATIVE PURPOSES 06/04/2013 ALEXEY ALVAREZ BOB R 564.00 CONSTIPATION 06/04/2013 OSCAR BLACKBURN APRNRICIA R 785.1 palpitations 06/04/2013 OSCAR BLACKBURN APRNRICIA R V70.3 OTHER GENERAL MEDICAL EXAMINATION FOR ADMINISTRATIVE PURPOSES 06/04/2013 ALEXEY ALVAREZ BOB R 564.00 CONSTIPATION 06/04/2013 ALEXEY ALVAREZ BOB R 785.1 palpitations 06/04/[address] CUTTER, BOB R V70.3 OTHER GENERAL MEDICAL EXAMINATION FOR ADMINISTRATIVE PURPOSES 06/04/[address] CUTTER, GISEL L 564.00 CONSTIPATION 06/04/[address] CUTTER, GISEL L 785.1 palpitations 06/04/[address] CUTTER, GISEL L V70.3 OTHER GENERAL MEDICAL EXAMINATION FOR ADMINISTRATIVE PURPOSES 11/27/2013 ELOY HITCHCOCK APRN 465.9 UPPER RESPIRATORY INFECTION 11/27/[address] CUTTER, GISEL L 465.9 UPPER RESPIRATORY INFECTION 11/27/2013 ELOY HITCHCOCK APRN 465.9 UPPER RESPIRATORY INFECTION 11/27/2013 CHRISSY ALVAREZ SUMIT R 465.9 UPPER RESPIRATORY INFECTION 11/27/[address] CUTTER, GISEL L 465.9 UPPER RESPIRATORY INFECTION 11/27/[address] CUTTER, GISEL L 465.9 UPPER RESPIRATORY INFECTION 11/27/2013 SERG BLACKBURN APRNIA R 465.9 UPPER RESPIRATORY INFECTION 11/27/2013 OSCAR BLACKBURN APRNRICIA R 465.9 UPPER RESPIRATORY INFECTION 11/27/[address] CUTTER, GISEL L 465.9 UPPER RESPIRATORY INFECTION 05/16/[address] CUTTER, GISEL L 626.2 EXCESSIVE OR FREQUENT MENSTRUATION 05/16/2014 ELOY HITCHCOCK APRN T 626.2 EXCESSIVE OR FREQUENT MENSTRUATION 05/16/2014 CHRISSY ALVAREZ SUMIT R 626.2 EXCESSIVE OR FREQUENT MENSTRUATION 05/16/[address] CUTTER, GISEL L 626.2 EXCESSIVE OR FREQUENT MENSTRUATION 05/16/[address] CUTTER, GISEL L 626.2 EXCESSIVE OR FREQUENT MENSTRUATION 05/16/2014 ALEXEY ALVAREZ BOB R 626.2 EXCESSIVE OR FREQUENT MENSTRUATION 05/16/2014 ALEXEY ALVAREZ BOB R 626.2 EXCESSIVE OR FREQUENT MENSTRUATION 05/16/[address] CUTTER, GISEL L 626.2 EXCESSIVE OR FREQUENT MENSTRUATION 07/16/2014 CHRISSY ALVAREZ SUMIT R 789.09 ABDOMINAL PAIN OTHER SPECIFIED SITE 07/16/[address] CUTTER, GISEL L 789.09 ABDOMINAL PAIN OTHER SPECIFIED SITE 07/16/[address] CUTTER, GISEL L 789.09 ABDOMINAL PAIN OTHER SPECIFIED SITE 07/16/[address] CUTTER, BOB R 789.09 ABDOMINAL PAIN OTHER SPECIFIED SITE 07/16/[address] CUTTER, BOB R 789.09 ABDOMINAL PAIN OTHER SPECIFIED SITE 07/16/[address] CUTTER, GISEL L 789.09 ABDOMINAL PAIN OTHER SPECIFIED SITE 07/28/[address] CUTTER, GISEL L 724.2 BACK PAIN, LOWER 07/28/[address] CUTTER, GISEL L 724.3 SCIATICA 07/28/[address] CUTTER, GISEL L 724.2 BACK PAIN, LOWER 07/28/[address] CUTTER, GISEL L 724.3 SCIATICA 07/28/2014 OSCAR BLACKBURN APRNRICIA R 724.2 BACK PAIN, LOWER 07/28/[address] CUTTEROSCAR MckeonBOB R 724.3 SCIATICA 07/28/2014 OSCAR BLACKBURN APRNRICIA R 724.2 BACK PAIN, LOWER 07/28/2014 OSCAR BLACKBURN APRNRICIA R 724.3 SCIATICA 07/28/[address] CUTTER, GISEL L 724.2 BACK PAIN, LOWER 07/28/[address] CUTTER, GISEL L 724.3 SCIATICA 09/18/2014 MADL, GISEL L CARTOGRAPHIC DESIGNER Ot 724.2 09/18/2014 MADL, GISEL L CARTOGRAPHIC DESIGNER Ot 724.3 09/18/2014 MADL, GISEL L CARTOGRAPHIC DESIGNER Ot V57.1 10/03/2014 MADL, GISEL L CARTOGRAPHIC DESIGNER Ot 724.2 LUMBAGO 10/03/2014 MADL, GISEL L CARTOGRAPHIC DESIGNER Ot 724.3 SCIATICA 10/03/2014 MADL, GISEL L CARTOGRAPHIC DESIGNER Ot V57.1 PHYSICAL THERAPY NEC 12/17/2014 SERG BLACKBURN APRNIA R 782.0 DISTURBANCE OF SKIN SENSATION 12/17/[address] CUTTER, GISEL L 782.0 DISTURBANCE OF SKIN SENSATION 12/22/2014 Ot 599.0 12/22/2014 Ot 788.30 01/30/2015 Ot 724.2 01/30/2015 Ot 782.0 04/21/2015 Ot 724.2 04/21/2015 Ot 782.0 04/22/2015 ELOY WADDELL DO Ot 595.9 CYSTITIS NOS 04/22/2015 ELOY WADDELL DO Ot 599.70 HEMATURIA, UNSPECIFIED 04/22/2015 Ot 724.2 04/22/2015 Ot 782.0 04/22/2015 Ot 599.0 04/22/2015 Ot 788.30 04/22/2015 Ot 724.2 04/22/2015 Ot 782.0 04/22/2015 Ot 599.0 04/22/2015 Ot 788.30 04/22/2015 Ot 724.2 04/22/2015 Ot 782.0 05/28/2015 GISSELLE MATIAS MD Ot 592.9 09/29/2016 Ot 599.0 URIN TRACT INFECTION NOS 09/29/2016 Ot 788.30 UNSPECIFIED URINARY INCONTINENCE 09/29/2016 Ot 724.2 LUMBAGO 09/29/2016 Ot 782.0 SKIN SENSATION DISTURB 09/29/2016 GISSELLE MATIAS MD Ot 592.9 URINARY CALCULUS NOS 09/29/2016 Ot 599.0 URIN TRACT INFECTION NOS 09/29/2016 Ot 788.30 UNSPECIFIED URINARY INCONTINENCE 09/29/2016 Ot 724.2 LUMBAGO 09/29/2016 Ot 782.0 SKIN SENSATION DISTURB 09/29/2016 GISSELLE MATIAS MD Ot 592.9 URINARY CALCULUS NOS Procedures Code Description [place] [address] ROUTINE VENIPUNCTURE 05/16/2014 80594 CBC 05/16/2014 97703 UA W/ CULTURE IF INDICATED 07/12/2014 30300 ROUTINE VENIPUNCTURE 07/16/2014 43887 UA W/ CULTURE IF INDICATED 07/16/2014 34456 CBC 07/16/2014 71242 CMP 07/16/2014 91771 XRAY LUMBAR SPINE 2 OR 3 VIEWS 07/29/2014 75511 XRAY SI JOINTS LESS THAN 3 VIEWS 07/29/2014 Physical Physical Therapy, [facility] 08/04/2014 06801 UA W/ CULTURE IF INDICATED 01/30/2015 48765 CULTURE URINE 01/30/2015 50999 UA W/ CULTURE IF INDICATED 02/06/2015 15801 CULTURE URINE 02/10/2015 Results Test Result Range Complete urinalysis with reflex to culture - 09/29/16 00:45 Urine color determination YELLOW NRG Urine clarity determination CLEAR NRG Urine pH measurement by test strip 8 5-9 Specific gravity of urine by test strip 1.015 1.016- 1.022 Urine protein assay by test strip, semi-quantitative NEGATIVE NEGATIVE Urine glucose detection by automated test strip NEGATIVE NEGATIVE Erythrocytes detection in urine sediment by light microscopy 1+ NEGATIVE Urine ketones detection by automated test strip NEGATIVE NEGATIVE Urine nitrite detection by test strip NEGATIVE NEGATIVE Urine total bilirubin detection by test strip NEGATIVE NEGATIVE Urine urobilinogen measurement by automated test strip (mass/volume) NORMAL NORMAL Urine leukocyte esterase detection by dipstick NEGATIVE NEGATIVE Automated urine sediment erythrocyte count by microscopy (number/high power field) [HPF] NRG Automated urine sediment leukocyte count by microscopy (number/high power field ) RARE NRG Bacteria detection in urine sediment by light microscopy TRACE NRG Squamous epithelial cells detection in urine sediment by light microscopy 5-10 NRG Crystals detection in urine sediment by light microscopy PRESENT NRG Casts detection in urine sediment by light microscopy NONE NRG Mucus detection in urine sediment by light microscopy NEGATIVE NRG Complete urinalysis with reflex to culture NO NRG Amorphous sediment detection in urine sediment by light microscopy FEW NICKIE PHOSPHATE NRG Complete blood count (CBC) with automated white blood cell (WBC) differential - 09/29/16 01:25 Blood leukocytes automated count (number/volume) 5.6 10*3/uL 4.3-11.0 Blood erythrocytes automated count (number/volume) 5.04 10*6/uL 4.35-5.85 Venous blood hemoglobin measurement (mass/volume) 14.6 g/dL 11.5-16.0 Blood hematocrit (volume fraction) 43 % 35-52 Automated erythrocyte mean corpuscular volume 86 [foz_us] 80-99 Automated erythrocyte mean corpuscular hemoglobin (mass per erythrocyte) 29 pg 25-34 Automated erythrocyte mean corpuscular hemoglobin concentration measurement ( mass/volume) 34 g/dL 32-36 Automated erythrocyte distribution width ratio 13.7 % 10.0-14.5 Automated blood platelet count (count/volume) 288 10*3/uL 130-400 Automated blood platelet mean volume measurement 10.0 [foz_us] 7.4-10.4 Automated blood neutrophils/100 leukocytes 50 % 42-75 Automated blood lymphocytes/100 leukocytes 35 % 12-44 Blood monocytes/100 leukocytes 9 % 0-12 Automated blood eosinophils/100 leukocytes 5 % 0-10 Automated blood basophils/100 leukocytes 1 % 0-10 Blood neutrophils automated count (number/volume) 2.8 10*3 1.8-7.8 Blood lymphocytes automated count (number/volume) 1.9 10*3 1.0-4.0 Blood monocytes automated count (number/volume) 0.5 10*3 0.0-1.0 Automated eosinophil count 0.3 10*3/uL 0.0-0.3 Automated blood basophil count (count/volume) 0.0 10*3/uL 0.0-0.1 Comprehensive metabolic panel - 09/29/16 01:25 Serum or plasma sodium measurement (moles/volume) 141 mmol/L 135-145 Serum or plasma potassium measurement (moles/volume) 3.6 mmol/L 3.6-5.0 Serum or plasma chloride measurement (moles/volume) 108 mmol/L 98-107 Carbon dioxide 21 mmol/L 21-32 Serum or plasma anion gap determination (moles/volume) 11 mmol/L 5-14 Serum or plasma urea nitrogen measurement (mass/volume) 15 mg/dL 7-18 Serum or plasma creatinine measurement (mass/volume) 0.70 mg/dL 0.60-1.30 Serum or plasma urea nitrogen/creatinine mass ratio 21 NRG Serum or plasma creatinine measurement with calculation of estimated glomerular filtration rate > NRG Serum or plasma glucose measurement (mass/volume) 99 mg/dL 70-105 Serum or plasma calcium measurement (mass/volume) 10.1 mg/dL 8.5-10.1 Serum or plasma total bilirubin measurement (mass/volume) 0.4 mg/dL 0.1-1.0 Serum or plasma alkaline phosphatase measurement (enzymatic activity/volume) 70 U/L 40-136 Serum or plasma aspartate aminotransferase measurement (enzymatic activity/ volume) 24 U/L 5-34 Serum or plasma alanine aminotransferase measurement (enzymatic activity/volume ) 14 U/L 0-55 Serum or plasma protein measurement (mass/volume) 9.1 g/dL 6.4-8.2 Serum or plasma albumin measurement (mass/volume) 4.9 g/dL 3.2-4.5 Serum or plasma amylase measurement (enzymatic activity/volume) - 09/29/16 01: 25 Serum or plasma amylase measurement (enzymatic activity/volume) 77 U /L 25-125 Lipase - 09/29/16 01:25 Lipase 25 U/L 8-78 Encounters ACCT No. Visit Date/Time Discharge Status Pt. Type Provider Facility Loc./Unit Complaint [id number] 02/06/2015 16:01:00 02/06/2015 23:59:59 CLS Outpatient GISEL ZHANG APRN Ian [id number] 01/30/2015 15:31:00 01/30/2015 23:59:59 CLS Outpatient BOB BLACKBURN APRN R [id number] 12/05/2014 13:58:00 12/05/2014 23:59:59 CLS Outpatient SERG BLACKBURN APRNIA R [id number] 08/04/2014 08:30:00 08/04/2014 23:59:59 CLS Outpatient GISEL ZHANG APRN Ian [id number] 07/29/2014 16:29:00 07/29/2014 23:59:59 CLS Outpatient GISEL ZHANG APRN Ian [id number] 07/16/2014 13:34:00 07/16/2014 23:59:59 CLS Outpatient CHRISSY ALVAREZ SUMIT Gould [id number] 07/12/2014 10:39:00 07/12/2014 23:59:59 CLS Outpatient ELOY HITCHCOCK APRN [id number] 05/16/2014 14:09:00 05/16/2014 23:59:59 CLS Outpatient GISEL ZHANG APRN Ian [id number] 11/27/2013 15:09:00 11/27/2013 23:59:59 CLS Outpatient ELOY HITCHCOCK APRN [id number] 09/29/2016 00:29:00 09/29/2016 02:29:00 DIS Emergency TANISHA COBB DO [facility] ER LOWER ABD PAIN [id number] 05/05/2015 13:20:00 05/05/2015 23:59:59 CLS Outpatient GISSELLE MATIAS MD [facility] RAD STONES [id number] 04/21/2015 21:53:00 04/22/2015 00:14:00 DIS Emergency ELOY WADDELL DO [facility] ER BLOOD IN URINE [id number] 09/10/2014 15:42:00 10/03/2014 10:33:00 DIS Outpatient GISEL ZHANGP [facility] REHAB LBP W/NUMBNESS TRANSITIONAL [facility] AT [facility] [id number] 01/30/2015 16:54:00 Document Registration [id number] 04/19/2011 08:11:00 Document Registration [id number] 02/11/2010 15:47:00 Document Registration
--- NOTE | 2017-10-21 17:04 | ED Fall/Injury ---
General Chief Complaint: Hip/Pelvic Problems Stated Complaint: TAILBONE PAIN AFTER FALL Nursing Triage Note: AMBULATED TO ROOM 03 WITH COMPLAINTS OF TAILBONE PAIN AFTER FALLING ON A STAIR X2 DAYS AGO. Source: patient, other (friend) Exam Limitations: no limitations History of Present Illness Time seen by provider: 17:04 Initial Comments 22-year-old female patient presents to the emergency department with complaints of tailbone pain after falling on stairs 2 days ago. Reports falling down 2-3 stairs. Denies hitting her head, loss of consciousness, or confusion. Did have 2 episodes of urinary incontinence with bladder spasms today. Denies bowel incontinence Location Injury Occurred: home Occurred: other (2 days) Injuries/Pain Location: other (sacrum) Context: slipped Loss of Consciousness: no loss of consciousness Modifying Factors: Worse With Movement Allergies and Home Medications Allergies Coded Allergies: No Known Drug Allergies (Unverified , 05/01/09) Home Medications Cetirizine HCl 10 Mg Tablet, #14 (Reported) Cyclobenzaprine HCl 5 Mg Tablet, 5 MG PO TID PRN for SPASMS, #10 Ref 0 Prescribed by: DONNA CAMPO on 10/21/171917 Naproxen 500 Mg Tablet, 500 MG PO BID PRN for pain, #20 Ref 0 Prescribed by: DONNA CAMPO on 10/21/171917 Nitrofurantoin Macrocrystal 100 Mg Capsule, 100 MG PO BID, #14 Ref 0 Prescribed by: DONNA CAMPO on 10/21/171917 Phenazopyridine HCl 100 Mg Tablet, 100 MG PO Q8H PRN for SPASMS, #14 Ref 1 Prescribed by: DONNA CAMPO on 10/21/171917 Constitutional: no symptoms reported Eyes: No Symptoms Reported Ears, Nose, Mouth, Throat: no symptoms reported Respiratory: No cough, No dyspnea on exertion, No short of breath Cardiovascular: No chest pain, No palpitations, No syncope Gastrointestinal: no symptoms reported Genitourinary: see HPI, No decreased output, No dysuria, No frequency, No hematuria, No hesitancy, incontinence, pain : No Musculoskeletal: see HPI, back pain (sacral pain), No joint pain, No neck pain Skin: No change in color, No lumps Psychiatric/Neurological: Denies Headache, Denies Numbness, Denies Paresthesia , Denies Seizure, Denies Tingling, Denies Weakness All Other Systems Reviewed Negative Unless Noted: Yes (Negative excepted noted.) Past Kpbllac-Oymptt-Zepwwx Hx Patient Social History Alcohol Use: Denies Use Recreational Drug Use: No Smoking Status: Never a Smoker Recent Foreign Travel: No Contact w/Someone Who Travel: No Recent Infectious Disease Expo: No Recent Hopitalizations: No Immunizations Up To Date Tetanus Booster (TDap): Unknown Surgeries History of Surgeries: Yes (EYE SURGERY; BONE CYST REMOVED FROM SPINE; CYSTOSCOPY) Surgeries: Eye Surgery, Orthopedic Respiratory History of Respiratory Disorde: Yes Respiratory Disorders: Asthma Cardiovascular History of Cardiac Disorders: Yes Cardiac Disorders: Palpitations Neurological History of Neurological Disord: No Reproductive System Hx Reproductive Disorders: No Genitourinary History of Genitourinary Disor: Yes Genitourinary Disorders: UTI-Chronic Gastrointestinal History of Gastrointestinal Di: Yes (ABDOMINAL PAIN AND BLOATING; CHRONIC CONSTIPATION SINCE INFANCY) Gastrointestinal Disorders: Chronic Constipation Musculoskeletal History of Musculoskeletal Dis: No Endocrine History of Endocrine Disorders: No Cancer History of Cancer: No Did You Recieve Any Treatments: No Psychosocial History of Psychiatric Problem: No Integumentary History of Skin or Integumenta: No Blood Transfusions History of Blood Disorders: No Adverse Reaction to a Blood Tr: No Reviewed Nursing Assessment Reviewed/Agree w Nursing PMH: Yes Family Medical History Significant Family History: No Pertinent Family Hx Physical Exam Vital Signs Vital Sign - Last 12Hours 10/21/17 10/21/17 16:27 19:25 Temp 98.0 Pulse 123 Resp 18 B/P (MAP) 136/96 (109) Pulse Ox 98 O2 Delivery Room Air Capillary Refill : Less Than 3 Seconds General Appearance: WD/WN, no apparent distress HEENT: PERRL/EOMI, pharynx normal Neck: supple, normal inspection Cardiovascular: normal peripheral pulses, regular rate, rhythm, no edema, no murmur Respiratory: lungs clear, normal breath sounds, no respiratory distress, no accessory muscle use Peripheral Pulses: 2+ Dorsalis Pedis (R), 2+ Left Dors-Pedis (L), 2+ Radial Pulses (R), 2+ Radial Pulses (L) Gastrointestinal: normal bowel sounds, non tender, soft, no organomegaly, No distended Back: normal inspection, no CVA tenderness, decreased range of motion, muscle spasm, vertebral tenderness (mild tenderness at the L5-S1 area and sacrum) Extremities: normal range of motion, non-tender, normal inspection, no pedal edema, normal capillary refill, pelvis stable Neurologic/Psychiatric: administrative fellow II-XII nml as tested, no motor/sensory deficits, alert, normal mood/affect, oriented x 3 Skin: normal color, warm/dry, No ecchymosis (no visible evidence of trauma ) Segun Coma Score Best Eye Response: (4) Open Spontaneously Best Verbal Response: (5) Oriented Best Motor Response: (6) Obeys Commands West Total: 15 Progress/Results/Core Measures Results/Orders Lab Results Laboratory Tests Test 10/21/17 18:29 Range/Units Urine Color YELLOW Urine Clarity VERY CLOUDY H Urine pH 8 5-9 Urine Specific [place] 1.010 L 1.016-1.022 Urine Protein 1+ H NEGATIVE Urine Glucose (UA) NEGATIVE NEGATIVE Urine Ketones NEGATIVE NEGATIVE Urine Nitrite POSITIVE H NEGATIVE Urine Bilirubin NEGATIVE NEGATIVE Urine Urobilinogen 1 NORMAL MG/DL Urine Leukocyte Esterase 1+ H NEGATIVE Urine RBC (Auto) NEGATIVE NEGATIVE Urine RBC NONE /HPF Urine WBC 10-25 H /HPF Urine Squamous Epithelial Cells 25-50 H /HPF Urine Crystals NONE /LPF Urine Bacteria FEW H /HPF Urine Casts NONE /LPF Urine Mucus NEGATIVE /LPF Urine Culture Indicated YES Micro Results Microbiology 10/21/17 Urine Culture - Preliminary, Resulted Asael Kimball Neg (Workforce Management Manager) My Orders Orders - DONNA CAMPO PA Sacrum And Coccyx (10/21/17 16:37) Ketorolac Injection (Toradol Injection) (10/21/17 17:18) Ct Pelvis Wo (10/21/17 17:18) Ct Lumbar Spine Wo (10/21/17 17:18) Ua Culture If Indicated (10/21/17 18:12) Phenazopyridine Tablet (Pyridium Tablet) (10/21/17 18:30) Hydrocodone/Apap 5/325 Tablet (Lortab 5 (10/21/17 18:30) Urine Culture (10/21/17 18:29) Rx-Nitrofurantoin [place] (Rx-Macrobid) (10/21/17 19:09) Medications Given in ED Vital Signs/I&O Vital Sign - Last 12Hours 12/23/17 12/23/17 16:27 19:25 Temp 98.0 97.0 Pulse 123 95 Resp 18 16 B/P (MAP) 136/96 (109) Pulse Ox 98 O2 Delivery Room Air Blood Pressure Mean: 109 Diagnostic Imaging Diagonstic Imaging: Xray Plain Films/CT/US/NM/MRI: other (sacrum) Comments CLINICAL INDICATION: Patient fell downstairs two days ago. Patient has severe pain in sacrum area. Patient has difficulty moving and walking. EXAM: X-ray of the coccyx and sacrum, three views. COMPARISON: None. FINDINGS AND IMPRESSION: Bowel gas obscures portions of the sacrum and coccyx. There is no fracture or dislocation. If there is continued concern for fracture, CT scan would help better evaluate. Transitional lumbosacral vertebrae is seen. Dictated on workstation # [id number] Reviewed: Reviewed by Me (radiology report reviewed by me) Diagonstic Imaging: CT Plain Films/CT/US/NM/MRI: pelvis Comments FINDINGS: No bony fracture or osseous lesion is seen. SI joints and symphysis are well approximated. There is no joint effusion. No hematoma. There is nonspecific trace free fluid in the cul-de-sac, likely physiologic. IMPRESSION: 1. No fracture or dislocation. 2. Not mentioned above, nonspecific circumferential thickening of the urinary bladder which could indicate cystitis. Please correlate clinically. Dictated by: Dictated on workstation # [id number] Reviewed: Reviewed by Me (radiology report reviewed by me) Diagonstic Imaging: CT Plain Films/CT/US/NM/MRI: other (lumbar spine) Comments COMPARISON: None. FINDINGS: Alignment is normal. There is no subluxation or fracture. No degeneration is identified. No osseous lesion is seen. There is no paraspinous mass. SI joints are symmetric. IMPRESSION: Negative lumbar spine. Dictated by: Dictated on workstation # [id number] Reviewed: Reviewed by Me (radiology report reviewed by me) Departure Communication (Admissions) Progress Notes Sacral x-ray obtained without acute findings. Patient does complain of 2 episodes of incontinence and mild tingling down the left lower extremity. Therefore, CT pelvis and lumbar spine obtained to rule out cauda equina syndrome. Findings are suggestive of cystitis of the bladder. Urinalysis obtained showing urinary tract infection. Plan for discharge to home with oral antibiotics, Pyridium, Flexeril, and Naprosyn. I Have advised the patient that if symptoms worsen or if any urinary incontinence and/or bowel incontinence she is to return immediately to the emergency department. Patient verbalizes understanding and agrees with the treatment plan. Impression Impression: Primary Impression: Sacral contusion Qualified Codes: S30.0XXA - Contusion of lower back and pelvis, initial encounter Additional Impression: Urinary tract infection Qualified Codes: N30.00 - Acute cystitis without hematuria Disposition: HOME, SELF-CARE Condition: Improved Departure-Patient Inst. Decision time for Depature: 19:13 Referrals: NO,LOCAL PHYSICIAN (PCP/Family) Primary Care Physician Patient Instructions: Contusion (DC) Add. Discharge Instructions: All discharge instructions reviewed with patient and/or family. Voiced understanding. Medications as directed. Tylenol over the counter as directed for pain. Ice pack for 20 minute intervals as needed for pain. Activity as tolerated. Follow-up with your family practitioner for recheck if needed. Return to the emergency department for worsened symptoms, bowel incontinence, bladder incontinence, or any other concerns. Scripts Cyclobenzaprine HCl (Cyclobenzaprine HCl) 5 Mg Tablet 5 MG PO TID Y for SPASMS, #10 TAB 0 Refills Prov: DONNA CAMPO 10/21/17 Naproxen (Naprosyn) 500 Mg Tablet 500 MG PO BID Y for pain, #20 TAB 0 Refills Prov: DONNA CAMPO 10/21/17 Nitrofurantoin Macrocrystal (Nitrofurantoin) 100 Mg Capsule 100 MG PO BID, #14 CAP 0 Refills Prov: DONNA CAMPO 10/21/17 Phenazopyridine HCl (Pyridium) 100 Mg Tablet 100 MG PO Q8H Y for SPASMS, #14 TAB 1 Refill Prov: DONNA CAMPO 10/21/17 DONNA CAMPO Oct 21, 2017 17:04
--- NOTE | 2017-10-21 17:09 | Diagnostic Imaging Report ---
CLINICAL INDICATION: Patient fell downstairs two days ago. Patient has severe pain in sacrum area. Patient has difficulty moving and walking. EXAM: X-ray of the coccyx and sacrum, three views. COMPARISON: None. FINDINGS AND IMPRESSION: Bowel gas obscures portions of the sacrum and coccyx. There is no fracture or dislocation. If there is continued concern for fracture, CT scan would help better evaluate. Transitional lumbosacral vertebrae is seen. Dictated by: Dictated on workstation # [id number]
[2017-10-21] MEDS ORDERED: KETOROLAC 60 MG/2 ML VIAL IM STA (17:18)
--- NOTE | 2017-10-21 17:55 | Diagnostic Imaging Report ---
PROCEDURE: CT lumbar spine without contrast. TECHNIQUE: Multiple contiguous axial images were obtained through the lumbar spine without the use of intravenous contrast. Sagittal and coronal reformations were then performed. INDICATION: Fall, back pain. COMPARISON: None. FINDINGS: Alignment is normal. There is no subluxation or fracture. No degeneration is identified. No osseous lesion is seen. There is no paraspinous mass. SI joints are symmetric. IMPRESSION: Negative lumbar spine. Dictated by: Dictated on workstation # [id number]
--- NOTE | 2017-10-21 18:10 | Diagnostic Imaging Report ---
PROCEDURE: CT pelvis without contrast. TECHNIQUE: Multiple contiguous axial images were obtained through the pelvis without the use of intravenous contrast. Sagittal and coronal reformations were performed. INDICATION: Fall, pelvic pain. COMPARISON: None. FINDINGS: No bony fracture or osseous lesion is seen. SI joints and symphysis are well approximated. There is no joint effusion. No hematoma. There is nonspecific trace free fluid in the cul-de-sac, likely physiologic. IMPRESSION: 1. No fracture or dislocation. 2. Not mentioned above, nonspecific circumferential thickening of the urinary bladder which could indicate cystitis. Please correlate clinically. Dictated by: Dictated on workstation # [id number]
[2017-10-21] MEDS ORDERED: HYDROcodone/APAP 5 MG/325 MG (LORTAB) TAB PO ONE (18:30)
[2017-10-21] MEDS ORDERED: PHENAZOPYRIDINE 100 MG (PYRIDIUM) TABLET PO ONE (18:30)
[2017-10-21 18:40] LABS: BILIRUBIN,URINE NEGATIVE (NEGATIVE); KETONES,URINE NEGATIVE (NEGATIVE); LEUKOCYTE ESTERASE ,URINE 1+ (NEGATIVE); NITRITE,URINE POSITIVE (NEGATIVE); PH,URINE 8 (5-9); PROTEIN,URINE 1+ (NEGATIVE); UROBILINOGEN,URINE 1 MG/DL (NORMAL)
[2017-10-21 18:54] LABS: SQUAMOUS EPITHELIAL CELL,UR 25-50 /HPF
[2017-10-21] MEDS ORDERED: RX-NITROFURANTOIN 100 MG (MACROBID) CAP PPK#2 PO STA (19:09)
[2017-10-21] MEDS ORDERED: NITR100C PO (19:18)
[2017-10-21] MEDS ORDERED: PHEN-639 PO (19:18)
[2017-10-21] MEDS ORDERED: CYCL5TAB PO (19:18)
[2017-10-21] MEDS ORDERED: NAPR-1071 PO (19:18)
[2017-10-21 19:25] VITALS: BP 116/87
== END 2017-10-21 19:26 | disposition home or self-care (01) ==
LOC: EDUNIT# 16:16 → ER 16:18
DX: S30.0XXA Contusion of lower back and pelvis, initial encounter (principal); N39.0 Urinary tract infection, site not specified; J45.909 Unspecified asthma, uncomplicated; Z87.440 Personal history of urinary (tract) infections; Z87.19 Personal history of other diseases of the digestive system; W10.9XXA Fall (on) (from) unspecified stairs and steps, initial encounter; Y92.009 Unspecified place in unspecified non-institutional (private) residence as the place of occurrence of the external cause
CPT/HCPCS: 72131; 72192; 72220; 81000; 87088; 87186; 99283